=== PATIENT | male | born 1935 | race Caucasian/White ===

== ENCOUNTER → 2016-11-08 | Outpatient (CLI) | payer MEDICARE, OTHER | END | disposition home or self-care (01) | LOC: PCVCCLINIC 15:18 | PROVIDERS: ATTEND Internal Medicine Cardiovascular Disease | DX: I25.10 Atherosclerotic heart disease of native coronary artery without angina pectoris (principal); E78.00 Pure hypercholesterolemia, unspecified; J44.9 Chronic obstructive pulmonary disease, unspecified; C61 Malignant neoplasm of prostate; R07.89 Other chest pain | CPT/HCPCS: 80061; 93005; G0463 ==

== ENCOUNTER → 2017-04-12 | Outpatient (CLI) | payer MEDICARE, OTHER ==
--- NOTE | 2017-04-12 14:09 | PCVCIMAG ---
EXAM: AORTOILIAC DUPLEX INDICATION: Peripheral arterial disease FINDINGS: AORTA: Suprarenal aorta measures maximum diameter of 2.6 cm. There is not a fusiform infrarenal aortic aneurysm. The infrarenal aorta measures maximum diameter of 1.9 cm. No aortic stenosis. RIGHT COMMON ILIAC ARTERY: Maximum diameter is 1.4 cm. No significant stenosis. RIGHT EXTERNAL ILIAC ARTERY: No significant stenosis. LEFT COMMON ILIAC ARTERY: Maximum diameter is 1.4 cm. No significant stenosis. LEFT EXTERNAL ILIAC ARTERY: No significant stenosis. IMPRESSION: No abdominal aortic aneurysm. No aortoiliac stenosis seen. LOC:[id number]
--- NOTE | 2017-04-12 18:49 | PCVCIMAG ---
APPROVED REPORT Exam: Stress Echocardiogram Indication: CAD s/p PCI, COPD Stress Nurse: Savi Branch RN Status: routine Ht: 5 ft 11 in HR: 67 bpm BP: 118/74 mmHg Rhythm: NSR Medical History Medical History: CAD s/p stent Procedure The patient underwent an Exercise Stress Test using the Can Protocol. Blood pressure, heart rate, and EKG were monitored. An Echocardiogram was performed by gas plant technician in four stages in quad fashion. At peak stress, four selected images were obtained and placed side by side with resting images for comparison. Stress Test Details Stress Test: Exercise stress testing was performed using a Can protocol. HR Resting HR: 67 bpmMax Heart Rate (APMHR): 140 bpm Max HR Achieved: 155 bpmTarget HR (85% APMHR): 119 bpm % of APMHR: 110 Recovery HR: 87 bpm HR response to stress: Normal HR response to stress BP Resting BP: 118/74 mmHg Max BP: 144/68 mmHg Recovery BP: 130/76 mmHg ECG Resting ECG: Sinus Rhythm Stress ECG: Sinus Rhythm with ST Change: Inferior, Lateral depression Maximum ST Deviation: 2 mm Arrhythmia: Triplet, 4 and 6 beat run of V-tach Recovery ECG: Sinus Rhythm Recovery ST Change: Lateral and inferior ST changes Recovery Arrhythmia: None Clinical Reason for Termination: Maximal effort, Dyspnea Stress Symptoms: Leg pain Exercise duration: 6 min 6 sec Highest Stage Achieved: Stage 3: 3.4 mph at 14% grade. Exercise capacity: 7.3 METs Pre-Stress Echo The resting Echocardiogram showed normal left ventricular contractility with an estimated Ejection Fraction of about >55%. Normal wall motion in all segments on baseline images. Post-Stress Echo The stress Echocardiogram showed labnormal left ventricular contractility with an estimated Ejection Fraction of about 55-60%. The stress Echocardiogram demonstrated wall motion abnormality in the mid-inferior, mid-anterolateral bower. Clinical Ischemic ST changes and ventricular ectopy Conclusion Clinical Response: Non-ischemic Exercise Capacity: Average Stress ECG Response: Ischemic Stress Echo Images: Ischemic Other Information Study Quality: Adequate
== END | disposition home or self-care (01) ==
LOC: PCVCIMAG 09:03
PROVIDERS: ATTEND Internal Medicine Cardiovascular Disease
DX: I73.9 Peripheral vascular disease, unspecified (principal); I25.89 Other forms of chronic ischemic heart disease; E78.5 Hyperlipidemia, unspecified; E11.9 Type 2 diabetes mellitus without complications; J44.9 Chronic obstructive pulmonary disease, unspecified; I25.10 Atherosclerotic heart disease of native coronary artery without angina pectoris; Z95.828 Presence of other vascular implants and grafts; Z95.5 Presence of coronary angioplasty implant and graft
CPT/HCPCS: 93325; 93351; 93978

== ENCOUNTER → 2017-04-20 | Outpatient (CLI) | payer MEDICARE, OTHER ==
--- NOTE | 2017-04-20 12:10 | PCVCINTER ---
EXAM: 1. AORTOGRAM AND BILATERAL LOWER EXTREMITY RUNOFF ANGIOGRAM 2. BILATERAL RENAL ANGIOGRAPHY INDICATION: Peripheral arterial disease. Coronary artery disease. Bilateral claudication and fatigue. Hypertension. Renal atherosclerosis. PROCEDURE: Procedure and risks of angiography intervention is appropriate including limb loss stroke and were discussed with the patient's family and consent obtained. The patient's left groin was prepped abnormal sterile fashion. IV conscious sedation was used to procedure with appropriate monitoring 10:00 AM through 10:30 AM.. Ultrasound was used to interrogate the left groin and showed the left common femoral artery to be patent. A permanent spot film was obtained. Under ultrasound guidance access into the left common femoral artery was obtained and a 5 Austrian sheath was placed. Through this a 5 Austrian flush catheter was placed into the abdominal aorta at the level of the renal arteries and AP aortogram was performed. Catheter was positioned at the aortic bifurcation and both oblique views of the pelvis were obtained. Catheter was positioned into the left external iliac artery and left leg runoff angiography was performed. Catheter was exchanged for a visceral catheter was placed into the right renal arteries and right renal angiograms obtained. Catheter was placed into the the left renal arteries and left renal angiograms were obtained. Catheter was advanced to the level of the right external iliac artery and right leg runoff angiography was obtained. Catheters and wires removed. Sheath was left in place for cardiac catheterization to follow. No immediate complications. FINDINGS: Aortogram: There is one right and one left renal artery. Moderate plaque infrarenal abdominal aorta without significant stenosis. Pelvis: Mild plaque in both common iliac arteries. Both internal iliac arteries are patent. Both external iliac arteries are patent. Previous stent in the mid and distal right external iliac artery is widely patent. Both common femoral and profunda femoral arteries are patent. Right renal artery: Moderate plaque proximal vessel causes mild stenosis which is not felt to be flow-limiting. No branch vessel stenosis. Left renal artery: Mild plaque proximal vessel without significant stenosis. Right leg: Scattered plaque throughout the superficial femoral artery and popliteal artery without significant stenosis. 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 The anterior tibial artery is occluded throughout. The peroneal artery and posterior tibial artery show satisfactory patency throughout and there is refilling of the distal anterior tibial artery into a small dorsalis pedis. Left leg: Scattered plaque in the superficial femoral artery with an area 40% stenosis in the mid vessel. The popliteal artery is patent. The anterior tibial artery is occluded throughout. 60% stenosis distal tibioperoneal trunk. 50% stenosis proximal posterior tibial artery which is otherwise a large patent vessel. Peroneal artery shows good patency throughout. IMPRESSION: Chronic subtotal occlusion right tibioperoneal trunk. It was decided not to intervene today since the patient does not have severe lateralizing symptoms to the right leg but rather bilateral leg fatigue. 40% stenosis mid left superficial femoral artery. Occlusion of the anterior tibial arteries bilaterally. follow up LOC:[place] [id number]
--- NOTE | 2017-04-20 17:07 | PCVCINTER ---
APPROVED REPORT Patient Details Patient Status: Room #: 3 The patient is a 82 year-old Male Event Personnel Dick Coughlin MD, Mian tSokes RT(R), Suleiman Simmons RT(R)(), Gina Bach RT(R) Indication No , Chest pain Procedure Narrative The patient was brought electively to the Cardiac Catheterization Laboratory and was prepped and draped in a sterile manner. A 6F sheath was inserted into the left femoral artery. Coronary angiography was performed using coronary diagnostic catheters. The right coronary system was accessed and visualized with a JR4 catheter. The left coronary system was accessed and visualized with a JL4 catheter. The left ventricle was accessed and visualized with a Angled Pigtail catheter. Left ventriculogram was performed in ROBERSON projection. The patient tolerated the procedure well and there were no complications associated with the procedure. There was no hematoma. Diagnostic Cath Left MainNormal LADMild plaquing was evident in the proximal and mid portions of the LAD. The mid LAD exhibited a 50-60% stenosis. The apical portion of the LAD exhibited a 90% stenosis Moderate proximal and mid vessel calcification Diagonal 1Mid vessel arising diagonal branch exhibited minimal plaquing CircumflexCircumflex was moderate in size and anatomically nondominant OM1The first marginal branch was small to moderate with a proximal, long 70% proximal stenosis (2.0mm vessel) OM2The second marginal branch was distally arising and small in caliber, diffusely diseased throughout its course. Proximal 85% stenosis Right CoronaryMild scattered proximal mid and distal right coronary disease. R PDAThe posterior descending was small in caliber with a 90% mid vessel stenosis. RPLVModerately large with an 85% proximal stenosis Left Ventriculography The left ventricle is normal in size with normal contractility. The left ventricular ejection fraction is estimated to be 60-65%. Hemodynamics The aortic pressure is 121/51 mmHg with a mean of 78 mmHg. The left ventricular pressure is 124/5 mmHg with a mean of 11 mmHg. Conclusion 1. Normal global and regional systolic function 2. Normal left main. 3. Moderate 50-60% mid LAD stenosis, severe stenosis involving the apical portion of the LAD 3. Diffuse circumflex disease (small vessel size) involving two marginal branches 4. RCA dominant with mild plaquing. 90% mid PDA stenosis (small vessel). 85% stenosis involving proximal PL branch
== END | disposition home or self-care (01) ==
LOC: PCVCINTER 09:03
PROVIDERS: ATTEND Nuclear Medicine Nuclear Cardiology
DX: I25.10 Atherosclerotic heart disease of native coronary artery without angina pectoris (principal); I70.213 Atherosclerosis of native arteries of extremities with intermittent claudication, bilateral legs; I10 Essential (primary) hypertension; I70.1 Atherosclerosis of renal artery
CPT/HCPCS: 36246; 36252; 75716; 76937; 93458; 99152; 99153; C1751; C1760; C1769; C1894; Q9966

== ENCOUNTER → 2017-12-06 | Outpatient (CLI) | payer MEDICARE, OTHER | END | disposition home or self-care (01) | LOC: PCVCCLINIC 16:19 | DX: I25.10 Atherosclerotic heart disease of native coronary artery without angina pectoris (principal); I77.1 Stricture of artery; I77.9 Disorder of arteries and arterioles, unspecified; I73.9 Peripheral vascular disease, unspecified; E78.00 Pure hypercholesterolemia, unspecified; Z79.82 Long term (current) use of aspirin; Z79.899 Other long term (current) drug therapy | CPT/HCPCS: 80061; 93005; G0463 ==

== ENCOUNTER → 2018-01-15 | Outpatient (CLI) | payer MEDICARE, OTHER | END | disposition home or self-care (01) | LOC: PCVCCLINIC 13:00 | DX: I25.10 Atherosclerotic heart disease of native coronary artery without angina pectoris (principal); E78.00 Pure hypercholesterolemia, unspecified; I73.9 Peripheral vascular disease, unspecified; I77.9 Disorder of arteries and arterioles, unspecified; R07.89 Other chest pain; Z87.891 Personal history of nicotine dependence; Z79.899 Other long term (current) drug therapy; Z79.82 Long term (current) use of aspirin; Z88.8 Allergy status to other drugs, medicaments and biological substances | CPT/HCPCS: 80061; 93005; G0463 ==

== ENCOUNTER → 2018-01-17 | Outpatient (CLI) | payer MEDICARE, OTHER ==
[~2018-01-17] MED LIST: REGADENOSON 0.4 MG/5 ML DISP.SYRIN. IV
== END | disposition home or self-care (01) ==
LOC: PCVCIMAG 08:25
DX: I25.10 Atherosclerotic heart disease of native coronary artery without angina pectoris (principal); R07.89 Other chest pain; E78.5 Hyperlipidemia, unspecified; Z87.891 Personal history of nicotine dependence
CPT/HCPCS: 78452; 93017; A9500; J2785

== ENCOUNTER → 2018-06-05 | Outpatient (CLI) | payer MEDICARE, OTHER ==
--- NOTE | 2018-06-05 11:46 | PCVCIMAG ---
EXAM: AORTOILIAC DUPLEX INDICATION: Peripheral arterial disease FINDINGS: AORTA: Suprarenal aorta measures maximum diameter of 2.6 cm. There is not a fusiform infrarenal aortic aneurysm. The infrarenal aorta measures maximum diameter of 2.5 cm. No aortic stenosis. RIGHT COMMON ILIAC ARTERY: Maximum diameter is 1.5 cm. No significant stenosis. RIGHT EXTERNAL ILIAC ARTERY: No significant stenosis. LEFT COMMON ILIAC ARTERY: Maximum diameter is 1.3 cm. No significant stenosis. LEFT EXTERNAL ILIAC ARTERY: No significant stenosis. IMPRESSION: No abdominal aortic aneurysm. No aortoiliac stenosis seen. LOC:[id number]
== END | disposition home or self-care (01) ==
LOC: PCVCIMAG 11:02
PROVIDERS: ATTEND Internal Medicine Cardiovascular Disease
DX: I25.10 Atherosclerotic heart disease of native coronary artery without angina pectoris (principal); I10 Essential (primary) hypertension; R09.89 Other specified symptoms and signs involving the circulatory and respiratory systems; I35.8 Other nonrheumatic aortic valve disorders; J44.9 Chronic obstructive pulmonary disease, unspecified; I73.9 Peripheral vascular disease, unspecified; E11.9 Type 2 diabetes mellitus without complications; Z87.891 Personal history of nicotine dependence; Z79.82 Long term (current) use of aspirin; Z79.84 Long term (current) use of oral hypoglycemic drugs
CPT/HCPCS: 80061; 93005; 93978; G0463

== ENCOUNTER → 2018-06-26 | Outpatient (CLI) | payer MEDICARE, OTHER ==
--- NOTE | 2018-06-26 15:05 | PCVCIMAG ---
EXAM: BILATERAL CAROTID DUPLEX INDICATION: Carotid Occlusive Disease. FINDINGS: Doppler Measurements (centimeters per second): RIGHT: Peak CCA-74, Peak ECA-128, Diastolic ICA-25, Peak ICA-84, ICA/CCA Ratio-1.1. LEFT: Peak CCA-84, Peak ECA-128, Diastolic ICA-24, Peak ICA-93, ICA/CCA Ratio-1.1. RIGHT CAROTID: The carotid bulb has mild plaque. The proximal internal carotid artery shows <40% stenosis. The common carotid artery shows no significant stenosis. The external carotid artery shows no significant stenosis. LEFT CAROTID: The carotid bulb has mild plaque. The proximal internal carotid artery shows <40% stenosis. The common carotid artery shows no significant stenosis. The external carotid artery shows no significant stenosis. Antegrade flow in both vertebral arteries. IMPRESSION: <40% stenosis of the right internal carotid artery with mild plaque. <40% stenosis of the left internal carotid artery with mild plaque. LOC:[place] [id number]
--- NOTE | 2018-06-26 17:00 | PCVCIMAG ---
APPROVED REPORT Study performed: 06/26/2018 14:53:11 EXAM: Comprehensive 2D, Doppler, and color-flow Echocardiogram Patient Location: Echo lab Status: routine BSA: 2.24 HR: 77 bpmBP: 130/80 mmHg Rhythm: NSR Other Information Study Quality: Technically Limited Risk Factors: Cardiac Risk Factors: HTN, DM Indications Diabetes CAD Hypertension/HDD Stent, COPD 2D Dimensions IVSd: 11.82 (7-11mm)LVOT Diam: 20.26 (18-24mm) LVDd: 35.22 mm PWd: 13.41 (7-11mm) LVDs: 27.83 (25-40mm) Left Atrium: 32.49 (27-40mm) Aortic Root: 28.99 mm LV Single Plane 4CH: 53.75 % LV Single Plane 2CH: 65.50 % Biplane EF: 60.2 % Volumes Left Atrial Volume (Systole) Single Plane 4CH: 17.11 mLSingle Plane 2CH: 27.50 mL LA ESV Index: 10.00 mL/m2 Aortic Valve AoV Peak Frandy.: 2.63 m/s AO Peak Gr.: 27.74 mmHgLVOT Max P.66 mmHg AO Mean Gr.: 16.24 mmHgLVOT Mean P.17 mmHg AO V2 Mean: 1.94 m/sLVOT Max V: 1.19 m/s AO V2 VTI: 56.68 cmLVOT Mean V: 0.84 m/s LILIANA (VTI): 1.37 [id number] V1 VTI: 24.04 cm LILIANA Vmax: 1.46 cm2 AI Vmax: 4.20 m/sSV (LVOT): 77.45 mL AI Bracken: 2.39 m/s2 AI PHT: 511.60 ms Mitral Valve E/A Ratio: 104.0 MV E Max Frandy.: 1.04 m/s MV A Frandy.: 0.01 m/s IVRT: 72.66 ms TDI E/Lateral E': 13.00E/Medial E': 13.00 Medial E' Frandy.: 0.08 m/s Lateral E' Frandy.: 0.08 m/s Pulmonary Vein P Vein S: 0.47 m/sP Vein A: 0.25 m/s P Vein D: 0.30 m/sP Vein A Dur.: 100.3 msec P Vein S/D Ratio: 1.57 Tricuspid Valve TR Peak Frandy.: 2.45 m/s TR Peak Gr.: 23.91 mmHg Left Ventricle The left ventricle is normal size. There is normal LV segmental wall motion. There is normal left ventricular wall thickness. Left ventricular systolic function is normal. The left ventricular ejection fraction is within the normal range. LVEF is 55-60%. The left ventricular diastolic function is normal. Right Ventricle The right ventricle is normal size. The right ventricular systolic function is normal. Atria The left atrium size is normal. The right atrium size is normal. Aortic Valve Aortic valve is calcified. Peak gradient is 28mmHg. Mean gradient [id number]. Aortic valve area is 1.4cm2. Trace to mild aortic regurgitation. Mild aortic stenosis. Mitral Valve Mild mitral annular calcification. There is no mitral valve regurgitation noted. No evidence of mitral valve stenosis. Tricuspid Valve The tricuspid valve is normal in structure. There is no tricuspid valve regurgitation noted. Pulmonary artery pressure is 31mmHg. Pulmonic Valve The pulmonary valve is normal in structure. There is no pulmonic valvular regurgitation. Great Vessels The aortic root is normal in size. IVC is normal in size and collapses >50% with inspiration. Pericardium There is no pericardial effusion. <Conclusion> The left ventricle is normal size. LVEF is 55-60%. The left ventricular diastolic function is normal. The right ventricle is normal size. The left atrium size is normal. Aortic valve is calcified. Peak gradient is 28mmHg. Mean gradient [id number]. Aortic valve area is 1.4cm2. Mild aortic stenosis. Trace to mild aortic regurgitation. There is no mitral valve regurgitation noted. There is no tricuspid valve regurgitation noted. Pulmonary artery pressure is 31mmHg. The aortic root is normal in size. There is no pericardial effusion.
== END | disposition home or self-care (01) ==
LOC: PCVCIMAG 14:33
PROVIDERS: ATTEND Internal Medicine Cardiovascular Disease
DX: I65.23 Occlusion and stenosis of bilateral carotid arteries (principal); R09.89 Other specified symptoms and signs involving the circulatory and respiratory systems; I25.10 Atherosclerotic heart disease of native coronary artery without angina pectoris; R01.1 Cardiac murmur, unspecified; E11.9 Type 2 diabetes mellitus without complications; I77.9 Disorder of arteries and arterioles, unspecified
CPT/HCPCS: 93306; 93880

== ENCOUNTER → 2018-12-25 | Outpatient (CLI) | payer MEDICARE, OTHER | END | disposition home or self-care (01) | LOC: PCVCCLINIC 14:00 | PROVIDERS: ATTEND Internal Medicine Cardiovascular Disease | DX: I25.10 Atherosclerotic heart disease of native coronary artery without angina pectoris (principal); I77.9 Disorder of arteries and arterioles, unspecified; I35.0 Nonrheumatic aortic (valve) stenosis; E78.00 Pure hypercholesterolemia, unspecified; E11.51 Type 2 diabetes mellitus with diabetic peripheral angiopathy without gangrene; J44.9 Chronic obstructive pulmonary disease, unspecified; Z87.891 Personal history of nicotine dependence; Z79.84 Long term (current) use of oral hypoglycemic drugs; Z79.899 Other long term (current) drug therapy; Z79.82 Long term (current) use of aspirin; Z88.8 Allergy status to other drugs, medicaments and biological substances | CPT/HCPCS: 36415; 80061; 93005; G0463 ==

== ENCOUNTER → 2019-07-23 | Outpatient (CLI) | payer MEDICARE, OTHER ==
--- NOTE | 2019-07-23 13:42 | PCVCIMAG ---
APPROVED REPORT Study performed: 07/23/2019 10:31:18 Exam: Stress Echocardiogram Indication: CAD, Hyperlipidemia, Aortic Stenosis Patient Location: Echo lab Stress Nurse: Savi Branch RN Room #: 1 Status: routine Ht: 5 ft 11 in HR: 74 bpm BP: 118/68 mmHg Rhythm: NSR Medical History Medical History: Diabetes Procedure The patient underwent an Exercise Stress Test using the Can Protocol. Blood pressure, heart rate, and EKG were monitored. An Echocardiogram was performed by can technician in four stages in quad fashion. At peak stress, four selected images were obtained and placed side by side with resting images for comparison. Stress Test Details Stress Test: Exercise stress testing was performed using a Can protocol. HR Resting HR: 74 bpmMax Heart Rate (APMHR): 138 bpm Max HR Achieved: 155 bpmTarget HR (85% APMHR): 117 bpm % of APMHR: 112 Recovery HR: 83 bpm HR response to stress: Normal HR response to stress BP Resting BP: 118/68 mmHg Max BP: 164/90 mmHg Recovery BP: 142/78 mmHg BP response to stress: Normal blood pressure response to stress. ECG Resting ECG: Sinus Rhythm Stress ECG: Sinus Rhythm ST Change: Inferior, lateral depression Arrhythmia: Occasional couplets, 1 triplet Recovery ECG: Sinus Rhythm Recovery ST Change: Inferior, lateral depression Recovery Arrhythmia: None Clinical Reason for Termination: Maximal effort, Dyspnea Exercise duration: 6 min 00 sec Highest Stage Achieved: Stage 2: 2.5 mph at 12% grade. Exercise capacity: 7.00 METs Overall Exercise Capacity for Age: Normal Stress ECG Conclusion ECG: Ischemic Clinical: Non-ischemicschemic Pre-Stress Echo The resting Echocardiogram showed normal left ventricular contractility with an estimated Ejection Fraction of about >55%. Normal wall motion in all segments on baseline images. Post-Stress Echo The stress Echocardiogram showed normal left ventricular contractility with an estimated Ejection Fraction of about 60-65%. Normal augmentation of wall motion in all segments on post stress images. Clinical No clinical or ECG evidence for ischemia. Conclusion Clinical Response: Non-ischemic Exercise Capacity: Average Stress ECG Response: Ischemic Stress Echo Images: Non-ischemic Aortic valve is calcified. Peak gradient is 33 mmHg and the mean gradient is 20 mmHg. Aortic valve area is 1.3 cm2. Trace tircuspid regurgitation. Pulmonary artery pressure is 36 mmHg. Normal stress echocardiogram with maximal exercise stress. Other Information Study Quality: Adequate <Conclusion> Aortic valve is calcified. Peak gradient is 33 mmHg and the mean gradient is 20 mmHg. Aortic valve area is 1.3 cm2. Trace tircuspid regurgitation. Pulmonary artery pressure is 36 mmHg. Normal stress echocardiogram with maximal exercise stress.
== END | disposition home or self-care (01) ==
LOC: PCVCIMAG 10:19
PROVIDERS: ATTEND Internal Medicine Cardiovascular Disease
DX: I35.8 Other nonrheumatic aortic valve disorders (principal); I25.10 Atherosclerotic heart disease of native coronary artery without angina pectoris; E78.00 Pure hypercholesterolemia, unspecified; J44.9 Chronic obstructive pulmonary disease, unspecified; Z88.8 Allergy status to other drugs, medicaments and biological substances; Z85.46 Personal history of malignant neoplasm of prostate; Z87.891 Personal history of nicotine dependence; Z82.49 Family history of ischemic heart disease and other diseases of the circulatory system
CPT/HCPCS: 93325; 93351